=== PATIENT | female | born 1985 | race Caucasian/White ===

== ENCOUNTER 2016-06-30 12:09 | Inpatient (IN) | payer OTHER ==
[2016-06-30] MEDS ORDERED: TERBUTALINE SULFATE 1 MG/ML VIAL IV PRN (13:11)
[2016-06-30] MEDS ORDERED: LIDOCAINE 1% 30 ML SDV SC PRN (13:11)
[2016-06-30] MEDS ORDERED: EPSOM SALT 454 GM TP PRN (13:11)
[2016-06-30] MEDS ORDERED: OXYTOCIN/RINGERS LACTATE 1,000 ML IV PRN (13:11)
[2016-06-30] MEDS ORDERED: OLIVE OIL 118 ML BTL MISC PRN (13:11)
[2016-06-30] MEDS ORDERED: LR 1,000 ML IV PRN (13:11)
[2016-06-30 13:24] LABS: % IMMATURE GRANULYOCYTES 0.5 % (0.0-1.1); ABSOLUTE IMMATURE GRANULOCYTES 0.06 10^3/uL (0.00-0.10); ADD DIFF? NO; ADD MORPH? NO; ADD SCAN? NO; ATYPICAL LYMPHOCYTE FLAG 0 (0-99); FRAGMENT RBC FLAG 0 (0-99); HEMATOCRIT 38.7 % (38.0-47.0); HEMOGLOBIN 13.4 g/dL (12.6-16.3); LEFT SHIFT FLG 10 (0-99); LIPEMIA HEMOLYSIS FLAG 90 (0-99); MEAN CELL HEMOGLOBIN 29.6 pg (27.9-34.1); MEAN CELL HEMOGLOBIN CONCENTR. 34.6 g/dL (32.4-36.7); MEAN CELL VOLUME 85.6 fL (81.5-99.8); MEAN PLATELET VOLUME 10.9 fL (8.7-11.7); PLATELET CLUMPS FLAG 10 (0-99); PLATELET COUNT 199 10^3/uL (150-400); RED BLOOD CELL COUNT 4.52 10^6/uL (4.18-5.33); RED CELL DISTRIBUTION WIDTH 13.3 % (11.5-15.2)
--- NOTE | 2016-06-30 13:42 | OBPROG ---
OBG Progress Note Assessment/Plan: Assessment:cat2 fhr pain well managed [place] q2-3 75/-2 cephalic in presentation regular contractions since 0700 Plan:expectant management of labor 06/30/16 13:43 Subjective: Doing well. Feeling greater in number and pain with the contractions Objective: 06/30/16 13:05 - SVE Dilation (cm): 4 Effacement (%): 75 Station: -2 Current Contraction Pattern: Regular FHR Pattern Variability: Moderate FHR Category: 2 Membranes: Intact ICD10 Worksheet Patient Problems: Problems Problem Status Onset Spontaneous vaginal delivery Acute
[2016-06-30] MEDS ORDERED: LIDOCAINE 1% 30 ML SDV ONE (14:22)
[2016-06-30] MEDS ORDERED: OLIVE OIL 118 ML BTL ONE (14:22)
[2016-06-30] MEDS ORDERED: AMMONIA AROMATIC 1 EACH AMP IH ONE (14:22)
[2016-06-30] MEDS ORDERED: MISOPROSTOL 200 MCG TAB ONE (14:23)
[2016-06-30] MEDS ORDERED: OXYTOCIN 10 UNIT/ML VIAL ONE (14:23)
[2016-06-30] MEDS ORDERED: TERBUTALINE SULFATE 1 MG/ML VIAL ONE (14:23)
--- NOTE | 2016-06-30 15:10 | OBPROG ---
OBG Progress Note Assessment/Plan: Assessment:cat2 fhr intermittant monitoring pain well managed [place] q2-3 7/80/0 cephalic in presentation regular contractions since 0700 tub to assist with pain management Plan:expectant management of labor 06/30/16 13:43 06/30/16 15:09 Subjective: feeling greater pain with the contractiona. Requeting to get into the tub to assist with pain. Doing fantastic. Coping well. Objective: 06/30/16 13:05 Patient ABO/Rh A POSITIVE 06/30/16 13:05 - SVE Dilation (cm): 7 Effacement (%): 90 Station: 0 Current Contraction Pattern: Regular FHR (bpm): 125 Membranes: Intact ICD10 Worksheet Patient Problems: Problems Problem Status Onset Spontaneous vaginal delivery Acute
--- NOTE | 2016-06-30 15:15 | GHP ---
[f rep st] HISTORY AND PHYSICAL DATE OF ADMISSION: 06/30/2016 HISTORY OF PRESENT ILLNESS: Patient is a 31-year-old, 2, para 1, with an EDC of 07/07/2016 who comes in on 06/30/2016 with complaints of regular contractions since 7 a.m. Prodromal labor for Friday and Friday night, but regular contractions since 7 a.m. on 06/30/2016. Harder, more painful contractions at about 9:30, somewhere in between 3 and 5 minutes apart. Patient to Labor and Delivery around 10:30/11:00 on 06/30/2016. Denies bleeding. States feeling positive movement. Denies rupture of membranes. Patient has been going to [facility] throughout . First visit was at 8 weeks and 4 days. Due date was confirmed with an early 1st trimester ultrasound. There was no change of dates; 07/07/2016 was confirmed. MEDICAL HISTORY: Constipation. Patient has a history of "sensitive stomach." Some history of cystitis "years ago." Patient is a vegetarian, eats some fish. SURGICAL HISTORY: In , an endoscopy/colonoscopy that was found to be normal. FAMILY HISTORY: Noncontributory. SOCIAL HISTORY: Occasional alcohol, 1-2 per week, when not . The patient is . The patient also has another child who is around 2 to 3 years old. GYNECOLOGICAL HISTORY: Previous OCP use, discontinued in 11/2014. Paps have been within normal limits. Other gynecological history: A breast lump in the beginning of this in the left breast. Ultrasound and mammogram. Removal by general surgeon in the 1st trimester. PREVIOUS HISTORY: In 08/2013 a boy who weighed 6 pounds 15 ounces at 40-4/7 weeks, 12 hours of labor, a spontaneous vaginal delivery. Patient had a hemorrhage with Pitocin. PHYSICAL ASSESSMENT: GENERAL: Patient is awake, alert, oriented x3. HEAD, EYES, EARS, NOSE, AND THROAT: Within normal limits. LUNGS: Clear bilaterally. GASTROINTESTINAL/GENITOURINARY: Bowel sounds are positive in all 4 quadrants. Abdomen is soft on palpation. Contractions are q.2-3 minutes, lasting about 60 seconds, moderate to firm on palpation with contractions. Patient is voiding without difficulties, quantity sufficient, yellow urine. Drinking clear fluids. Having some diarrhea since inception of labor. NEUROLOGIC: DTRs are 1+ bilaterally. No clonus. Homans sign is negative. Mobility: Patient is ambulating without difficulties, getting around the room without difficulties, and able to care for self without any complaints. LABORATORY: Patient is A positive, antibody negative. RPR is nonreactive. Rubella is nonimmune. Hepatitis is negative. HIV is negative. Triple screen in 04/2012 was negative. TSH on 12/13/2015 was within normal limits. Pap on 11/29/2015 was within normal limits. Gonorrhea and chlamydia were negative. Quad screen was negative. Patient was somewhat anemic on 28-week labs, 35.6; today hematocrit was 38.7. GBS was negative. PLAN OF CARE: 1. Intermittent monitoring. 2. GBS negative. 3. Expectant management of labor. /[id number]/MODL MTDD
[2016-06-30] MEDS ORDERED: METHYLERGONOVINE MAL 0.2 MG/ML INJ ONE (16:45)
[2016-06-30] MEDS ORDERED: SIMETHICONE 80 MG TAB CHEW PO PRN (16:58)
[2016-06-30] MEDS ORDERED: ACETAMINOPHEN 325 MG TAB PO PRN (16:58)
[2016-06-30] MEDS ORDERED: DOCUSATE SODIUM 100 MG CAP PO PRN (16:58)
[2016-06-30] MEDS ORDERED: HYDROCODONE/APAP 5/325 TAB PO PRN (16:58)
[2016-06-30] MEDS ORDERED: HYDROCORTISONE 0.5% CREAM TP PRN (16:58)
[2016-06-30] MEDS ORDERED: METHYLERGONOVINE MAL 0.2 MG/ML INJ IM ONE (16:59)
--- NOTE | 2016-06-30 17:02 | OBPROC ---
- Labor and Delivery Onset of Contractions Date: 06/30/16 Onset of Contractions Time: 07:00 Rupture of Membranes Date: 06/30/16 Rupture of Membranes Time: 16:20 Rupture of Membranes Type: Spontaneous Amniotic Fluid Color: Clear Dilation Complete Time: 16:33 Delivery Type: Spontaneous Placenta Delivery Date: 06/30/16 Placenta Delivery Time: 16:43 Episiotomy/Laceration: Other (Specify) (bilateral periurethrals. 1 stitch to the right periurethral) Repair: 4-0, Vicryl EBL: 400 Complications: Nuchal Cord - Medications Labor Augmentation/Induction Meds Used: None Anesthesia: Local (Specify) - [place] Info Infant A Delivery Date: 06/30/16 Delivery Time: 16:33 Sex of : Male Score (1 Min): 8 Score (5 Min): 8
[2016-06-30] MEDS: IBUPROFEN 600 MG TAB PO PRN ×2 (17:30→23:33)
[2016-06-30 20:39] VITALS: RESP 18
[2016-06-30] MEDS ORDERED: METHYLERGONOVINE MAL 0.2 MG TAB PO SCH (23:00)
[2016-07-01] MEDS: IBUPROFEN 600 MG TAB PO PRN ×2 (05:33→11:56)
--- NOTE | 2016-07-01 07:50 | SOAPPROG ---
SOAP Progress Note Assessment/Plan: Assessment: well denies pain voiding without difficulty bleeding scant rubra pericare with each void [id number] Plan:discharge to home with instructions discussed pain management, , ss infection, rest, pelvic rest x 6 weeks, exercise slow return, iron replacement, continue pnv, 4 week mood check 6 week pp follow up 06/30/16 13:43 06/30/16 15:09 07/01/16 07:46 Objective: Vital Signs Temp Pulse Resp BP Pulse Ox 37.0 C 86 18 116/72 93 06/30/16 20:38 06/30/16 20:38 06/30/16 20:38 06/30/16 20:38 06/30/16 20:38 Laboratory Results 07/01/16 05:40 06/30/16 07/01/16 07/02/16 05:59 05:59 05:59 Output Total 400 Balance -400 - Time Spent With Patient Time Spent With Patient: 15 minutes - Pending Discharge Pending Discharge Date: 07/01/16 Pending Discharge Time: 17:30 Physical Exam - Physical Exam General Appearance: WD/WN, alert, no apparent distress Pelvic Exam: vaginal bleeding (scant rubra lochia) Skin: normal color, warm/dry Extremities: normal range of motion, non-tender, Hiren's sign (negative bilaterally), other (dtrs1+ bilaterally) Neuro/Psych: no motor/sensory deficits, alert, normal mood/affect, oriented x 3 ICD10 Worksheet Patient Problems: Problems Problem Status Onset Spontaneous vaginal delivery Acute
[2016-07-01 08:55] VITALS: BP 100/65; PULSE 77; TEMP 98.3; O2SAT 92
[2016-07-01] MEDS ORDERED: IRON POLYSAC/IRON HEME 28 MG TAB PO SCH (09:00)
[2016-07-01] MEDS ORDERED: MEASLES,MUMPS&RUBELLA VACC/PF 0.5 ML VIAL SC ONE (17:00)
== END 2016-07-01 17:30 | disposition home or self-care (01) | DRG 775 ==
LOC: FLD 12:09 → FOB 20:27
PROVIDERS: ADMIT Advanced Practice Midwife; ATTEND Obstetrics & Gynecology
DX: O71.82 Other specified trauma to perineum and vulva (principal); O99.613 Diseases of the digestive system complicating pregnancy, third trimester; K59.00 Constipation, unspecified; Z3A.39 39 weeks gestation of pregnancy; Z37.0 Single live birth
CPT/HCPCS: J2210; J2590; J3105